=== PATIENT | male | born 1985 | race Caucasian/White ===

== ENCOUNTER 2022-03-05 17:39 | Emergency (ER) | payer OTHER ==
[~2022-03-05] VITALS: Ht 180.3 cm; Wt 81.8 kg
[2022-03-05] MEDS ORDERED: TETRACAINE 0.5% OPHTH SOLN 4ML OU ONE (19:25)
[2022-03-05] MEDS ORDERED: FLUORESCEIN OPHTH 1 MG STRIP OU ONE (19:25)
[2022-03-05] MEDS ORDERED: ERYTHROMYCIN OPHTH OINT OS ONE (21:00)
[2022-03-05] MEDS ORDERED: LIDOCAINE 1% MDV 20ML VIAL SC ONE (21:00)
[2022-03-05] MEDS ORDERED: CEPHALEXIN 500 MG CAP PO ONE (21:05)
[2022-03-05] MEDS ORDERED: BOOSTRIX/ADACEL VACCINE (DIPHTH/PERTUSS/ACELL/TETANUS) 0.5ML SYR IM ONE (21:05)
[2022-03-05] MEDS ORDERED: ERYT5OIN25 OS (21:47)
[2022-03-05] MEDS ORDERED: CEPH500C PO (21:47)
[2022-03-05 22:02] VITALS: BP 125/65
== END 2022-03-05 22:03 | disposition home or self-care (01) ==
LOC: EDBD 17:39 → M ED 17:39
DX: S01.112A Laceration without foreign body of left eyelid and periocular area, initial encounter (principal); W22.8XXA Striking against or struck by other objects, initial encounter; F17.200 Nicotine dependence, unspecified, uncomplicated; Z23 Encounter for immunization